=== PATIENT | male | born 1980 | race Caucasian/White ===

== ENCOUNTER 2018-10-23 14:35 | Emergency (ER) | payer OTHER ==
[~2018-10-23] VITALS: Ht 172.7 cm; Wt 68.0 kg
== END 2018-10-23 15:08 | disposition home or self-care (01) ==
LOC: ED 14:35
DX: Z02.89 Encounter for other administrative examinations (principal); L02.414 Cutaneous abscess of left upper limb; Z48.01 Encounter for change or removal of surgical wound dressing